=== PATIENT | female | born 1995 | race Caucasian/White ===

== ENCOUNTER 2017-07-22 20:36 | Observation (INO) ==
[2017-07-22 21:37] LABS: Bilirubin,Urine Negative (Negative); Blood,Urine Negative (Negative); Clarity,Urine Cloudy (Clear); Color,Urine Yellow (Yellow); Glucose,Urine (UA) Normal (Normal); Ketones,Urine Negative (Negative); Leukocyte Esterase,Urine Small (Negative); Nitrite,Urine Negative (Negative); PH,Urine 6.5 pH Units (5.0-8.0); Protein,Urine Negative (Neg-Trace); Urobilinogen,Urine Normal (Normal)
[2017-07-22 21:39] LABS: Bacteria,Urine Few per hpf (None-Few); Hyaline Casts,Urine None Seen per lpf (None-Few); RBC,Urine 0-3 per hpf (0-3); Squamous Epithelial Cell,Urine Many per lpf (None-Few); WBC,Urine 15-30 per hpf (0-3)
[2017-07-22 21:42] LABS: Amphetamine Screen,Urine Negative ng/mL (Cutoff=1000); Barbiturate Screen,Urine Negative ng/mL (Cutoff=200); Benzodiazepines Screen,Urine Negative ng/mL (Cutoff=200); Cannabinoid Screen,Urine Positive ng/mL (Cutoff = 50); Cocaine Screen,Urine Negative ng/mL (Cutoff= 300); Opiate Screen,Urine Negative ng/mL (Cutoff=300); Phencyclidine Screen,Urine Negative ng/mL (Cutoff=25)
--- NOTE | 2017-07-23 04:13 | OB/GYN Progress Note ---
Date of Encounter: 07/23/17 Time of Encounter: 04:11 - Assessment and Plan (1) 35 weeks gestation of Status: Acute 21 y/o @ 35 weeks presents to L&D with complaints of decreased FM, FHT CAT 1, patient reports FM, ok for discharge Objective - Vital Signs Vital Signs: Intake and Output 07/22/17 07/22/17 07/23/17 15:59 23:59 07:59 Other: Weight 79.832 kg - Labs Labs: Abnormal lab results Urine Clarity Cloudy (Clear) A 07/22/17 20:58 Ur Leukocyte Esterase Small (Negative) H 07/22/17 20:58 Urine Microscopic WBC 15-30 per hpf (0-3) H 07/22/17 20:58 Ur Squamous Epith Cells Many per lpf (None-Few) H 07/22/17 20:58 Ur Culture Indicated? YES (NO) A 07/22/17 20:58 U Marijuana (THC) Screen Positive ng/mL (Cutoff = 50) H 07/22/17 20:58
== END 2017-07-22 21:40 | disposition home or self-care (01) ==
LOC: 1NENULAB
PROVIDERS: ADMIT Student in an Organized Health Care Education/Training Program; ATTEND Student in an Organized Health Care Education/Training Program

== ENCOUNTER → 2017-07-25 07:18 | Observation (INO) ==
[2017-07-25 05:22] LABS: Bilirubin,Urine Negative (Negative); Blood,Urine Negative (Negative); Clarity,Urine Cloudy (Clear); Color,Urine Yellow (Yellow); Glucose,Urine (UA) Normal (Normal); Ketones,Urine Negative (Negative); Leukocyte Esterase,Urine Trace (Negative); Nitrite,Urine Negative (Negative); Protein,Urine Negative (Neg-Trace); Specific Gravity,Urine 1.011 (1.010-1.025); Urobilinogen,Urine Normal (Normal)
[2017-07-25 05:25] LABS: Bacteria,Urine Few per hpf (None-Few); Hyaline Casts,Urine None Seen per lpf (None-Few); RBC,Urine 0-3 per hpf (0-3); Squamous Epithelial Cell,Urine Many per lpf (None-Few)
[2017-07-25 05:27] LABS: Amphetamine Screen,Urine Negative ng/mL (Cutoff=1000); Barbiturate Screen,Urine Negative ng/mL (Cutoff=200); Benzodiazepines Screen,Urine Negative ng/mL (Cutoff=200); Cannabinoid Screen,Urine Positive ng/mL (Cutoff = 50); Cocaine Screen,Urine Negative ng/mL (Cutoff= 300); Opiate Screen,Urine Negative ng/mL (Cutoff=300); Phencyclidine Screen,Urine Negative ng/mL (Cutoff=25)
--- NOTE | 2017-07-25 06:32 | OB/GYN History & Physical ---
Date of Encounter: 07/25/17 Time of Encounter: 06:20 Assessment and Plan (1) 35 weeks gestation of Current visit: No Status: Acute History of Present Illness Chief complaint: Contractions HPI: Ms. Jackson is a 21 year old female that is 35 weeks and 5 days that presents for contractions since last night. She says the contractions started to be 10 minutes apart last night and are now 5 minutes apart. She admits to having feeling movement. She denies any leaking of vaginal fluid or bleeding. She denies any vision changes, headaches, nausea, vomiting, fever, dysuria, and diarrhea. Rubella antibody positive Varicella antibody Positive Blood Type O+ Hep B Non-reactive Past Med Surg Social Fam HX - Past Medical History Medical history: asthma, migraine Psychiatric history: no psych history - Past Surgical History Surgical History: appendectomy - Social History Smoking Status: Former smoker Smokeless Tobacco Status: Yes Alcohol use: none Drug use: marijuana - Family History Mother Adopted: No Family Member Ethnicity: Non- Living Status: Still Living Hx Family Cardiac Disorders: No Hx Family Respiratory Disorders: No Hx Family Cancer: No Hx Family GI Disorders: Yes Hx Family Endocrine Disorder: No Hx Family Neuromuscular Disorders: No Hx Family Neurologic Disorders: Yes Hx Family HEENT Disorders: No Hx Family Autoimmune Disorders: No Obstetrical History - Pregnancies : 2 Para: 0 Term: 0 : 0 Ab's: 1 Livin Medications and Allergies Pnv No.122/Iron/Folic Acid [ Multi Tablet] 1 tab PO DAILY 12/16/16 [ History] Nitrofurantoin 07/25/17 [History] 3 Allergy/AdvReac Type Severity Reaction Status Date / Time nitrofurantoin Allergy Hives Verified 07/25/17 05:22 [From Macrodantin] Exam - Constitutional Constitutional: well developed, well nourished, no acute distress, average body habitus - HEENT HEENT: Mucus Membranes Moist - Lungs Respiratory exam: CTAB - Cardiovascular Cardiovascular exam: RRR, +S1, +S2 - Abdomen Abdomen: Present: bowel sounds normal, gravid, non tender - Extremities Extremities exam: radial pulses palpable and symmetrical - Cervix Dilation: 1 Results Abnormal lab results Urine Clarity Cloudy (Clear) A 07/25/17 05:10 Ur Leukocyte Esterase Trace (Negative) H 07/25/17 05:10 Urine Microscopic WBC 5-15 per hpf (0-3) H 07/25/17 05:10 Ur Squamous Epith Cells Many per lpf (None-Few) H 07/25/17 05:10 Ur Culture Indicated? YES (NO) A 07/25/17 05:10 U Marijuana (THC) Screen Positive ng/mL (Cutoff = 50) H 07/25/17 05:10 All other labs normal. - VTE Reasons for not Prescribing Prophylaxis: Treatment not Indicated - Low risk for VTE
--- NOTE | 2017-07-25 07:14 | Discharge Summary ---
Date of Encounter: 07/25/17 Time of Encounter: 07:13 - Discharge Diagnosis (1) False labor Priority: Primary Status: Acute Comments: no cervical change after 2 hours. (2) NST (non-stress test) reactive on surveillance Priority: Secondary Status: Acute Comments: baseline 130 bpm moderate variability +15x15 accels no decels noted. Cat. 1 tracing. - Discharge Medications Home Medications: Pnv No.122/Iron/Folic Acid [ Multi Tablet] 1 tab PO DAILY 12/16/16 [ History] Nitrofurantoin 07/25/17 [History] Allergies/Adverse Reactions: 3 Allergy/AdvReac Type Severity Reaction Status Date / Time nitrofurantoin Allergy Hives Verified 07/25/17 05:22 [From Macrodantin] Data Procedures and tests throughout hospitalization: Laboratory Tests 07/25/17 07/25/17 05:10 05:10 Urine Color Yellow Urine Clarity Cloudy A Urine pH 7.0 Ur Specific [place] 1.011 Urine Protein Negative Urine Glucose (UA) Normal Urine Ketones Negative Urine Blood Negative Urine Nitrite Negative Urine Bilirubin Negative Urine Urobilinogen Normal Ur Leukocyte Esterase Trace H Urine Microscopic RBC 0-3 Urine Microscopic WBC 5-15 H Ur Squamous Epith Cells Many H Urine Bacteria Few Hyaline Casts None Seen Ur Culture Indicated? YES A Urine Opiates Screen Negative Ur Barbiturates Screen Negative Ur Phencyclidine Scrn Negative Ur Amphetamines Screen Negative U Benzodiazepines Scrn Negative Urine Cocaine Screen Negative U Marijuana (THC) Screen Positive H Labs on day of discharge: Labs from last 24 hours 07/25/17 07/25/17 05:10 05:10 Urine Color Yellow Urine Clarity Cloudy A Urine pH 7.0 Ur Specific [place] 1.011 Urine Protein Negative Urine Glucose (UA) Normal Urine Ketones Negative Urine Blood Negative Urine Nitrite Negative Urine Bilirubin Negative Urine Urobilinogen Normal Ur Leukocyte Esterase Trace H Urine Microscopic RBC 0-3 Urine Microscopic WBC 5-15 H Ur Squamous Epith Cells Many H Urine Bacteria Few Hyaline Casts None Seen Ur Culture Indicated? YES A Urine Opiates Screen Negative Ur Barbiturates Screen Negative Ur Phencyclidine Scrn Negative Ur Amphetamines Screen Negative U Benzodiazepines Scrn Negative Urine Cocaine Screen Negative U Marijuana (THC) Screen Positive H Date of admission: 07/25/17 04:52 Primary care physician: Benito Cool MD Discharging clinician: Marleny Still Anticipated date of discharge: 07/25/17 - Patient Status Disposition: Home, Self-Care Condition: Good Functional capacity at discharge: independent ambulation - Discharge Instructions Follow Up With: Benito Cool MD [Primary Care Provider] - - Diet and Activity Activity: increase activity as tolerated Diet: regular diet 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 1 tracing contractions 10 min apart. - VTE Reasons for not Prescribing Prophylaxis: Treatment not Indicated - Low risk for VTE
== END | disposition home or self-care (01) ==
LOC: 1NENULAB
PROVIDERS: ADMIT Obstetrics & Gynecology; ATTEND Obstetrics & Gynecology

== ENCOUNTER 2017-07-26 11:27 | Inpatient (IN) ==
[2017-07-26] MEDS ORDERED: Famotidine 20 MG/2 ML VIAL IVP PRN (12:42)
[2017-07-26] MEDS ORDERED: Naloxone 0.4 MG/ML INJ IVP PRN (12:42)
[2017-07-26] MEDS ORDERED: Ondansetron 4 MG/2 ML VIAL IVP PRN (12:42)
[2017-07-26] MEDS ORDERED: Penicillin G Potassium 5,000,000 UNIT in D5% in Water (Mini-Bag+) 100 ML IVPB ONE (12:43)
[2017-07-26] MEDS ORDERED: Betamethasone Acet/SodPhos 6 MG/ML MDV IM SCH (12:45)
[2017-07-26] MEDS ORDERED: Ringers Solution, Lactated 1,000 ML IVC SCH (12:45)
--- NOTE | 2017-07-26 13:12 | OB/GYN History & Physical ---
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 Baez aware of plan of care Qualifiers: labor delivery status: with delivery in third trimester Fetus number: single or unspecified fetus Qualified Code(s): O60.14X0 - labor third trimester with delivery third trimester, not applicable or unspecified (4) 35 weeks gestation of Current visit: No Status: Acute History of Present Illness Chief complaint: Contractions HPI: Ms. Jackson is a 21 year old female 35+6 presents to triage with complaints of contractions. Patient evaluated in triage last night and was fingertip, continued to have contractions during the day presents to triage for reevaluation. Reports good movement and contractions, denies leaking of fluid, some vaginal bleeding after vaginal exam yesterday no acute vaginal bleeding noted at this time. complicated with elevated AFP, and abnormalities noted with feet on ultrasound small and unable to visualize toes. Labs: O+, rubella and varicella immune, GBS unknown, all other serologies negative Past Med Surg Social Fam HX - Past Medical History Medical history: asthma, migraine Psychiatric history: no psych history - Past Surgical History Surgical History: appendectomy - Social History Smoking Status: Former smoker Smokeless Tobacco Status: Yes Alcohol use: none Drug use: marijuana - Family History Mother Adopted: No Family Member Ethnicity: Non- Living Status: Still Living Hx Family Cardiac Disorders: No Hx Family Respiratory Disorders: No Hx Family Cancer: No Hx Family GI Disorders: Yes Hx Family Endocrine Disorder: No Hx Family Neuromuscular Disorders: No Hx Family Neurologic Disorders: Yes Hx Family HEENT Disorders: No Hx Family Autoimmune Disorders: No Obstetrical History - Pregnancies : 2 Para: 0 Term: 0 : 0 Ab's: 1 Livin Medications and Allergies Pnv No.122/Iron/Folic Acid [ Multi Tablet] 1 tab PO DAILY 12/16/16 [ History] Nitrofurantoin 07/25/17 [History] 3 Allergy/AdvReac Type Severity Reaction Status Date / Time nitrofurantoin Allergy Hives Verified 07/25/17 05:22 [From Macrodantin] Exam - Constitutional Constitutional: well developed, well nourished, no acute distress, average body habitus - Neck Neck exam: full ROM - Lungs Respiratory exam: CTAB - Cardiovascular Cardiovascular exam: RRR, +S1, +S2 - Abdomen Abdomen: Present: bowel sounds normal, gravid, non tender - Extremities Deep Tendon Reflex Grade: 2+ Normal - Cervix Dilation: 5 Effacement: 90 Station: -1 - Uterus Uterus exam: Present: normal size, normal contour Results All other labs normal. - VTE Reasons for not Prescribing Prophylaxis: Treatment not Indicated - Low risk for VTE
[2017-07-26 13:33] LABS: Basophils % 0.2 %; Eosinophils % 0.1 %; Hematocrit 44.8 % (35.3-44.9); Hemoglobin 15.1 g/dL (11.5-15.4); Immature Granulocytes % 0.6 % (0-4); Lymphocytes # 1.2 K/mcL (0.6-4.6); Lymphocytes % 7.1 %; Mean Corpuscular HGB Conc 33.7 g/dL (31.6-35.5); Mean Corpuscular Volume 89.1 fL (83.0-100.0); Mean Platelet Volume 11.7 fL (9.4-12.4); Monocytes # 0.8 K/mcL (0.0-1.3); Monocytes % 4.3 %; Neutrophils # 15.2 K/mcL (1.6-8.9); Platelet Count 133 K/mcL (140-400); Red Blood Count 5.03 M/mcL (3.82-4.97); Red Cell Distribution Width 13.4 % (11.5-14.5); Segmented Neutrophils % 87.7 %
[2017-07-26 13:45] LABS: Amphetamine Screen,Urine Negative ng/mL (Cutoff=1000); Barbiturate Screen,Urine Negative ng/mL (Cutoff=200); Benzodiazepines Screen,Urine Negative ng/mL (Cutoff=200); Cannabinoid Screen,Urine Positive ng/mL (Cutoff = 50); Cocaine Screen,Urine Negative ng/mL (Cutoff= 300); Opiate Screen,Urine Negative ng/mL (Cutoff=300); Phencyclidine Screen,Urine Negative ng/mL (Cutoff=25)
[2017-07-26] MEDS ORDERED: *HR* Nalbuphine 20 MG/ML AMPUL IVP PRN (13:57)
[2017-07-26] MEDS ORDERED: *HR* Nalbuphine 20 MG/ML AMPUL ONE (14:05)
[2017-07-26] MEDS ORDERED: *HR* Ropivacaine/PF 0.2% 10 ML AMPUL EP ONE (14:32)
[2017-07-26] MEDS ORDERED: *HR* FentaNYL (PF) 100 MCG/2 ML VIAL EP ONE (14:32)
[2017-07-26] MEDS ORDERED: *HR* FentaNYL (PF) 100 MCG/2 ML VIAL ONE (14:35)
[2017-07-26] MEDS ORDERED: *HR* Ropivacaine/PF 0.2% 10 ML AMPUL ONE (14:36)
[2017-07-26] MEDS ORDERED: Epidural Premix (fent/bupiv) 110 ML EP SCH (14:45)
[2017-07-26] MEDS ORDERED: Epidural Premix (fent/bupiv) 110 ML EP ONE (14:54)
--- NOTE | 2017-07-26 15:02 | Anesthesia Evaluation PreOp ---
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: Denies Any Significant HX Other Medical History: Renal (reflux, anitbiotic rx), GERD Anesthesia History: No Prior Anesthetic Complications, Past Anesthesia (Tonsil, BMT,appy) : Yes Test: Positive Alcohol Use: none Drug use: marijuana Medications and Allergies Pnv No.122/Iron/Folic Acid [ Multi Tablet] 1 tab PO DAILY 12/16/16 [ History] Nitrofurantoin 07/25/17 [History] 3 Allergy/AdvReac Type Severity Reaction Status Date / Time nitrofurantoin Allergy Hives Verified 07/25/17 05:22 [From Macrodantin] - Meds/Allergy Pre-op Review Medications Reviewed: Yes Allergies Reviewed: Yes Beta Blockers on Current Med List: No Anesthesia Results - Labs 07/26/17 13:20 Anesthesia Exam 133/79, 88 fht 123, Height: 5'5" Weight: 80kg NPO (# of Hours): 2 Pain Scale: 7 Pain Scale Used: Numeric (1 - 10) - HEENT Pupil (Motor): Pupils equal Mallampati: II Teeth: Normal Oral Opening: Greater than 3 - CARDIOPULMONARY TECHNOLOGIST CHIEF LOC: Oriented CARDIOPULMONARY TECHNOLOGIST CHIEF Motor: Normal RUE, Normal LUE, Normal RLE, Normal LLE, Normal Face CARDIOPULMONARY TECHNOLOGIST CHIEF Sensory: Normal: RUE, LUE, RLE, LLE, Face - Cardiac Rhythm: Regular Murmur: None - Pulmonary Breath Sounds: bilateral Clear Respiratory Effort: Symmetrical Anesthesia Assess/Plan ASA Score: 2 Modified Froy Scale for Level of Consciousness: Cooperative, oriented, and tranquil Anesthetic Plan: Regional Autologous Blood: No Monitoring Plan: Standard Monitors Recovery Plan: Other (risks discussed, questions answered, consented)
--- NOTE | 2017-07-26 15:06 | Anesthesia Procedures ---
Date of Encounter: 07/26/17 Time of Encounter: 15:04 Procedures: Anesthesia - Epidural/Spinal Patient ID/Chart reviewed: Yes Patient examined: Yes OB Eval: Gestational age: 40 OB Eval: : 1 OB Eval: Hx Para: 0 OB Eval: Dilated at (cm): 4 OB Eval: Contractions: Non-stressed pattern Consent Obtained: Yes Supplemental Oxygen: None/Room Air Site Prep: Aseptic Technique, Sterile prep and drape Patient position: upright Local Anesthetic: Lidocaine 1% Amount of Local Anesthetic used: 3 Touhy Needle Gauge: 18 Touhy Needle Depth (cm): 7 Catheter Depth at Skin (cm): 18 Test Dose (1.5% Lido + Epi): Volume given (mls): 3 Test Dose Result: Negative Loading Dose: Fentanyl (mcg): 100 Loading Dose: Other: rop 0.2% 10cc Loading Dose Administered: Thru Touhy Needle Catheter Secured in Place: Tegaderm Interspace Used: L2-L3 Loss of Resistance (AUNDREA): Yes Blood: No CSF: No Paresthesia: No Procedure: aseptic tech, tolerated well, VSS
[2017-07-26] MEDS ORDERED: Penicillin G Potassium 2,500,000 UNIT in D5% in Water 100 ML IVPB SCH (16:00)
[2017-07-26] MEDS ORDERED: Oxytocin 20 units/ LR 1000 mL 20 UNIT/1,000 ML BAG IVC ONE (17:37)
[2017-07-26] MEDS ORDERED: Chloroprocaine/PF 20 ML VIAL INFILT ONE (18:02)
[2017-07-26] MEDS ORDERED: EPHEDrine 50 MG/ML VIAL ONE (18:12)
[2017-07-26] MEDS ORDERED: *HR* Phenylephrine 10 MG/ML VIAL ONE (18:40)
[2017-07-26] MEDS ORDERED: *HR* Oxytocin 10 UNIT/ML VIAL IM ONE (18:47)
--- NOTE | 2017-07-26 19:22 | OB/GYN Procedure Note ---
Delivery - Delivery Date: 07/26/17 Provider: Bita Baez Intrapartum events: none Delivery induction: none Delivery augmentation: rupture of membranes (at complete and +3) Delivery monitor: external FHT, external uterine Anesthesia: epidural Estimated Blood Loss: 500 - Infant (s) Infant A Delivery Date: 07/26/17 Infant Delivery Time: 17:37 Presentation: vertex Position: ASHLEIGH Route of delivery: Gender: Female Viability: Viable Pounds: 4 Ounces: 9 Weight Gram: 2.06 kg at 1 minute: 9 at 5 mins: 9 Shoulder Dystocia: not encountered Specimens collected: cord blood Placenta: retained, partial extraction Cord: nuchal cord, 3 umbilical vessels, delivered through nuchal - Repair Episiotomy: none Laceration Description: None - Complications Delivery complications: retained placenta Delivery comments: Patient complete and +3 station amniotomy was performed with small amount of clear fluid. Patient pushed and delivered a viable female . Nuchal cord was noted and she delivered through. Infant was placed on mom's abdomen and cord was clamped and cut. Waiting button buttonhole marker, Dr. Lama, and nursery staff in attendance. No labial, vaginal, vulvar, or cervical lacerations on exam. The cord avulsed and appeared to be velamenotous in insertion. Attempt to remove placenta in the room were unsuccessful. Bleeding was minimal and patient was taken to the OR for exam with anesthesia. Epidural was dosed by STU[facility]ON and patient was given 2 gm Ancef. A piece of placental tissue was removed from the vaginal vault. Manual palpation of the uterine cavity revealed gritty texture throughout without definitive palpable placental tissue to remove. Banjo curettage was performed with small fragments of placental tissue obtained. Her bleeding continued to be minimal. Procedure aborted with concern for acreta with primiparous who desires future fertility and minimal vaginal bleeding. I discussed with the patient who is awake and alert and she understands we may need to return to the OR if she bleeds, but we will order ultrasound to evaluate what if any tissue remains and give her uterotonics to attempt to have the placenta spontaneously deliver. - Disposition Mom disposition: to OR (stable) Emery disposition: taken to nursery (stable)
[2017-07-26] MEDS ORDERED: Ibuprofen 600 MG TABLET PO PRN (19:53)
[2017-07-26] MEDS ORDERED: Acetaminophen 325 MG TABLET PO PRN (19:53)
[2017-07-26] MEDS ORDERED: Benzocaine/Menthol 56 GM AEROSOL SPRAY TP PRN (19:53)
[2017-07-26] MEDS ORDERED: *HR* HYDROcodone/Acet 5/325 mg TABLET PO PRN (19:53)
[2017-07-26] MEDS ORDERED: Lanolin 7 G OINT...G. TP PRN ×2 (19:53)
[2017-07-26] MEDS: Oxytocin 20 units/ LR 1000 mL 20 UNIT/1,000 ML BAG IVC SCH (21:06)
[2017-07-27] MEDS: Oxytocin 20 units/ LR 1000 mL 20 UNIT/1,000 ML BAG IVC SCH (04:11)
[2017-07-27 06:14] LABS: Basophils % 0.1 %
[2017-07-27 06:15] LABS: Hemoglobin 10.8 g/dL (11.5-15.4); Immature Granulocytes % 0.9 % (0-4); Lymphocytes # 1.2 K/mcL (0.6-4.6); Lymphocytes % 4.3 %; Mean Corpuscular HGB Conc 33.8 g/dL (31.6-35.5); Mean Corpuscular Hemoglobin 30.2 pg (28.0-33.3); Mean Corpuscular Volume 89.4 fL (83.0-100.0); Mean Platelet Volume 11.1 fL (9.4-12.4); Monocytes # 1.5 K/mcL (0.0-1.3); Monocytes % 5.6 %; Neutrophils # 23.8 K/mcL (1.6-8.9); Platelet Count 111 K/mcL (140-400); Red Blood Count 3.58 M/mcL (3.82-4.97); Red Cell Distribution Width 13.4 % (11.5-14.5); Segmented Neutrophils % 89.1 %
[2017-07-27 06:43] LABS: Platelet Estimate Slight Decrease (Normal); Polychromasia 1+ (Not Present)
[2017-07-27] MEDS ORDERED: ceFAZolin 1,000 MG in D5% in Water (Mini-Bag+) 100 ML IVPB SCH (08:00)
[2017-07-27] MEDS ORDERED: MetroNIDAZOLE 500 MG/100 ML 500 MG/100 ML BAG IVPB SCH (08:00)
[2017-07-27 08:38] LABS: Alanine Aminotransferase 12 Units/L (0-55); Albumin 2.3 g/dL (3.5-5.0); Albumin/Globulin Ratio 0.9 (1.1-2.2); Alkaline Phosphatase 84 Units/L (38-126); Aspartate Amino Transferase 29 Units/L (5-34); BUN/Creatinine Ratio 11 (6-26); Bilirubin,Total 0.3 mg/dL (0.2-1.2); Blood Urea Nitrogen 6 mg/dL (7-20); Calcium 8.5 mg/dL (8.6-10.8); Carbon Dioxide 22 mEq/L (19-29); Chloride 105 mEq/L (98-109); Globulin 2.7 g/dL (2.4-3.5); Glucose 92 mg/dL (70-99); Osmolality,Calculated 275 (280-300); Potassium 3.9 mEq/L (3.5-4.5); Sodium 134 mEq/L (136-145); eGFR For African Americans > 60 (> 60); eGFR For Non-African Americans > 60 (> 60)
[2017-07-27] MEDS ORDERED: Prenatal Vit/FA 1 EACH TABLET PO SCH (09:00)
[2017-07-27 09:24] VITALS: BP 106/65
[2017-07-27 13:40] LABS: Basophils % 0.1 %; Hematocrit 30.7 % (35.3-44.9); Hemoglobin 10.4 g/dL (11.5-15.4); Immature Granulocytes % 0.8 % (0-4); Lymphocytes # 1.5 K/mcL (0.6-4.6); Lymphocytes % 7.1 %; Mean Corpuscular HGB Conc 33.9 g/dL (31.6-35.5); Mean Corpuscular Hemoglobin 30.2 pg (28.0-33.3); Mean Corpuscular Volume 89.2 fL (83.0-100.0); Mean Platelet Volume 10.9 fL (9.4-12.4); Monocytes # 1.1 K/mcL (0.0-1.3); Neutrophils # 18.8 K/mcL (1.6-8.9); Platelet Count 117 K/mcL (140-400); Red Blood Count 3.44 M/mcL (3.82-4.97); Red Cell Distribution Width 13.5 % (11.5-14.5)
--- NOTE | 2017-07-27 14:49 | OB/GYN Progress Note ---
Date of Encounter: 07/27/17 Time of Encounter: 14:42 - Assessment and Plan (1) Placenta increta Current Visit: Yes Status: Acute Arrangements to be transferred by ambulance to tertiary care center were obtained. Qualifiers: Trimester: third trimester Qualified Code(s): O43.223 - Placenta increta, third trimester Subjective - Subjective Interval history: Patient has a history of retained placenta. I received a call from the radiologist stating that he felt that she had a placenta increta and possibly percreta. Dr. Baez and I consulted on this patient earlier today and felt that it is in her best interest to be transferred to tertiary care center for management. Patient has been stable all day with minimal bleeding. Her hemoglobin is stable. I discussed the case with Dr. Benitez maternal medicine physician at [facility] to arrange her transport. He questioned the reason for transfer and I explained to him that the possibility of undergoing hysterectomy was not technically feasible here due to the possibility of significant blood loss and the need for blood products and blood that at times are not readily available. He directed me to send her to the emergency room at [facility] where she would be evaluated by their service. Objective - Latest Vital Signs Latest vital signs: Vital Signs Temp Pulse Resp BP Pulse Ox 07/27/17 09:22 98.2 F 125 16 106/65 07/27/17 00:53 99.3 F 105 14 117/70 97 07/27/17 00:05 98.4 F 102 14 118/75 98 07/26/17 23:05 98.2 F 111 16 124/77 100 07/26/17 22:05 98.5 F 110 16 122/80 100 Intake and Output 07/26/17 07/27/17 07/27/17 23:59 07:59 15:59 Intake Total 1640 / 1640 100 / 100 Output Total 1000 / 1000 1100 / 1100 Balance 640 / 640 -1000 / -1000 Intake: IV Fluids 1000 / 1000 100 / 100 Pitocin 20 unit In 1,000 ml @ 1000 / 1000 125 mls/hr IVC .Q8H [facility] Rx#: [id number] Ancef 1,000 MG In Dextrose 5% ( 100 / 100 Minibag+) 100 ML 100 ML @ 200 mls/hr IVPB Q8HR [facility] Rx#: [id number] Oral 640 / 640 Output: Urine 1000 / 1000 1100 / 1100 Other: Weight 79.061 kg Patient Weight 07/27/17 23:59 Weight 79.061 kg - Exam Lungs: bilateral: normal Chest: Normal S1, Normal S2 Uterus: Present: firm Uterus Position: 2 Fingers Above Umbilicus - Labs Labs: Laboratory Results - last 24 hr 07/27/17 07/27/17 07/27/17 06:01 07:54 13:29 WBC 26.7 H D RBC 3.58 L Hgb 10.8 L D Hct 32.0 L MCV 89.4 MCH 30.2 MCHC 33.8 RDW 13.4 Plt Count 111 L MPV 11.1 Immature Gran % 0.9 Seg Neutrophils % 89.1 Lymphocytes % 4.3 Monocytes % 5.6 Eosinophils % 0.0 Basophils % 0.1 Neutrophils # 23.8 H Lymphocytes # 1.2 Monocytes # 1.5 H Eosinophils # 0.0 Basophils # 0.0 Platelet Estimate Slight Decrease L Polychromasia 1+ A Sodium 134 L Potassium 3.9 Chloride 105 Carbon Dioxide 22 BUN 6 L Creatinine 0.54 L Est GFR ( Amer) > 60 Est GFR (Non-Af Amer) > 60 BUN/Creatinine Ratio 11 Glucose 92 Calculated Osmolality 275 L Calcium 8.5 L Total Bilirubin 0.3 AST 29 ALT 12 Alkaline Phosphatase 84 Serum Total Protein 5.0 L Albumin 2.3 L Globulin 2.7 Albumin/Globulin Ratio 0.9 L Blood Type O POSITIVE Antibody Screen NEGATIVE Crossmatch See Detail 07/27/17 13:29 WBC 21.6 H RBC 3.44 L Hgb 10.4 L Hct 30.7 L MCV 89.2 MCH 30.2 MCHC 33.9 RDW 13.5 Plt Count 117 L MPV 10.9 Immature Gran % 0.8 Seg Neutrophils % 87.0 Lymphocytes % 7.1 Monocytes % 5.0 Eosinophils % 0.0 Basophils % 0.1 Neutrophils # 18.8 H Lymphocytes # 1.5 Monocytes # 1.1 Eosinophils # 0.0 Basophils # 0.0 Platelet Estimate Polychromasia Sodium Potassium Chloride Carbon Dioxide BUN Creatinine Est GFR ( Amer) Est GFR (Non-Af Amer) BUN/Creatinine Ratio Glucose Calculated Osmolality Calcium Total Bilirubin AST ALT Alkaline Phosphatase Serum Total Protein Albumin Globulin Albumin/Globulin Ratio Blood Type Antibody Screen Crossmatch
[2017-07-27] MEDS ORDERED: Oxytocin 20 units/ LR 1000 mL 20 UNIT/1,000 ML BAG IVC ONE (15:07)
== END 2017-07-27 15:30 | disposition critical access hospital (66) | DRG 560 ==
LOC: 1NENULAB → OBSVTOIN 11:27 → 1NENUOBS 07-27 00:21
PROVIDERS: ADMIT Obstetrics & Gynecology; ATTEND Obstetrics & Gynecology